=== PATIENT | female | born 1960 | race African-American/Black ===

== ENCOUNTER 2019-05-24 11:45 | Inpatient (IN) ==
[2019-05-24] MEDS ORDERED: ONDANSETRON 4 MG/2 ML VIAL IV STA (12:23)
[2019-05-24] MEDS ORDERED: SODIUM CHLORIDE 0.9% 2,000 ML IV STA (12:23)
[2019-05-24 13:00] LABS: Basophils % 0.4 % (0.0-0.8); Hematocrit 40.4 VOL% (35.7-47.0); Hemoglobin 12.6 GM/DL (12.0-16.0); Immature Granulocytes % 0.7 %; Immature Granulocytes Absolute 0.03 #; Lymphocytes # 1.2 10*3/uL (1.4-4.0); Lymphocytes % 26.5 % (21.3-54.2); Mean Corpuscular HGB Conc 31.2 GM/DL (32-36); Mean Platelet Volume 9.5 FL (9.6-12.0); Monocytes % 7.8 % (1.7-12.7); Neutrophils % 64.6 % (38.7-73.9); Platelet Count 289 T/CUMM (130-400); Red Blood Count 4.39 MC/CUMM (3.8-5.5); Red Cell Distribution Width 14.6 % (9.3-17.3); White Blood Count 4.6 T/CUMM (4-12)
[2019-05-24 13:27] LABS: Albumin 3.2 G/DL (3.4-5.0); Bilirubin,Total 0.4 MG/DL (0.2-1.0); Calcium 8.6 MG/DL (8.5-10.1); Osmolality,Calculated 273.4 MOS/KG (273-304); Total Protein 8.1 G/DL (6.4-8.3)
[2019-05-24] MEDS ORDERED: guaiFENesin/DM ER 600-30 MG TABLET PO PRN (16:04)
[2019-05-24] MEDS ORDERED: ONDANSETRON 4 MG/2 ML VIAL IV PRN (16:04)
[2019-05-24] MEDS ORDERED: GLUCAGON 1 MG VIAL IM PRN (16:25)
[2019-05-24] MEDS ORDERED: DEXTROSE 10% 250 ML BAG IV PRN (16:25)
[2019-05-24 17:30] LABS: Risk Ratio 3.74; Thyroid Stimulating Hormone 1.97 uIU/ml (0.358-3.74); VLDL CHOLESTEROL 23.8 MG/DL
[2019-05-24] MEDS: metroNIDAZOLE INJ 500 MG in PREMIX 1 EACH IV SCH (17:58)
[2019-05-24] MEDS: INSULIN REGULAR 100 UNIT/ML SUBCUT SCH (17:58)
[2019-05-24] MEDS: SODIUM CHLORIDE 0.9% 1,000 ML IV SCH (17:58)
[2019-05-24] MEDS: ENOXAPARIN 40 MG/0.4 ML SYRINGE SUBCUT SCH (17:59)
[2019-05-24] MEDS ORDERED: LEVOFLOXACIN INJ 500 MG in PREMIX 1 EACH IV ONE (20:00)
[2019-05-24] MEDS: ALBUTEROL 2.5 MG/3 ML NEB RESP TX SCH (20:36)
[2019-05-24] MEDS: GABAPENTIN 100 MG CAPSULE PO SCH (21:21)
[2019-05-24] MEDS: LORazepam 0.5 MG TABLET PO SCH (21:21)
[2019-05-24] MEDS: ZALEPLON 5 MG CAPSULE PO SCH (21:21)
[2019-05-25] MEDS: ALBUTEROL 2.5 MG/3 ML NEB RESP TX SCH ×4 (01:34→19:49)
[2019-05-25] MEDS: SODIUM CHLORIDE 0.9% 1,000 ML IV SCH ×3 (04:47→18:20)
[2019-05-25] MEDS: metroNIDAZOLE INJ 500 MG in PREMIX 1 EACH IV SCH ×2 (04:47→18:16)
[2019-05-25 04:50] LABS: Basophils % 0.2 % (0.0-0.8); Hemoglobin 10.3 GM/DL (12.0-16.0); Immature Granulocytes % 0.2 %; Immature Granulocytes Absolute 0.02 #; Lymphocytes # 1.7 10*3/uL (1.4-4.0); Lymphocytes % 19.7 % (21.3-54.2); Mean Corpuscular HGB Conc 31.2 GM/DL (32-36); Mean Corpuscular Volume 91.7 FL (87-102); Mean Platelet Volume 9.4 FL (9.6-12.0); Monocytes % 7.2 % (1.7-12.7); Neutrophils % 72.7 % (38.7-73.9); Platelet Count 248 T/CUMM (130-400); Red Cell Distribution Width 14.6 % (9.3-17.3); White Blood Count 8.4 T/CUMM (4-12)
[2019-05-25 05:27] LABS: Calcium 8.2 MG/DL (8.5-10.1); Osmolality,Calculated 273.1 MOS/KG (273-304)
[2019-05-25 07:57] LABS: Apearance,Urine CLEAR (Clear); Bilirubin,Urine Negative (Negative); Blood, Urine Negative (Negative); Glucose,Urine (UA) Negative (Negative); Ketones,Urine Negative (Negative); Nitrite,Urine Negative (Negative); Protein,Urine Negative; RBC,Urine 2 /HPF (0-4); Squamous Epithelial Cell,Urine Occasional /HPF (0-10); Urine Color Yellow (Yellow); Urine Urobilinogen < 2.0 EU/DL (0.2-1.0); WBC,Urine <1 /HPF (0-6)
[2019-05-25] MEDS: PANTOPRAZOLE 40 MG TABLET PO SCH (09:00)
[2019-05-25] MEDS: SERTRALINE 100 MG TABLET PO SCH (09:00)
[2019-05-25] MEDS: CALCIUM (CARBONATE)/VITAMIN D 600 MG-400 UNIT TABLET PO SCH (09:01)
[2019-05-25] MEDS: INSULIN REGULAR 100 UNIT/ML SUBCUT SCH ×3 (09:02→18:18)
[2019-05-25] MEDS: ENOXAPARIN 40 MG/0.4 ML SYRINGE SUBCUT SCH (18:15)
[2019-05-25] MEDS: ZALEPLON 5 MG CAPSULE PO SCH (21:19)
[2019-05-25] MEDS: LEVOFLOXACIN INJ 250 MG in PREMIX 1 EACH IV SCH (21:19)
[2019-05-25] MEDS: LORazepam 0.5 MG TABLET PO SCH (21:19)
[2019-05-25] MEDS: GABAPENTIN 100 MG CAPSULE PO SCH (21:19)
[2019-05-26] MEDS: ALBUTEROL 2.5 MG/3 ML NEB RESP TX SCH ×4 (00:53→19:42)
[2019-05-26] MEDS: SODIUM CHLORIDE 0.9% 1,000 ML IV SCH ×3 (02:44→17:34)
[2019-05-26] MEDS: metroNIDAZOLE INJ 500 MG in PREMIX 1 EACH IV SCH ×2 (05:04→17:46)
[2019-05-26 06:06] LABS: Calcium 7.9 MG/DL (8.5-10.1); Osmolality,Calculated 274.7 MOS/KG (273-304)
[2019-05-26 06:15] LABS: Basophils % 0.3 % (0.0-0.8); Eosinophils % 0.3 % (0.00-10.9); Hematocrit 31.9 VOL% (35.7-47.0); Hemoglobin 9.9 GM/DL (12.0-16.0); Immature Granulocytes % 0.3 %; Immature Granulocytes Absolute 0.02 #; Lymphocytes # 3.1 10*3/uL (1.4-4.0); Lymphocytes % 50.4 % (21.3-54.2); Mean Corpuscular Volume 92.2 FL (87-102); Mean Platelet Volume 9.9 FL (9.6-12.0); Neutrophils % 39.7 % (38.7-73.9); Platelet Count 245 T/CUMM (130-400); Red Blood Count 3.46 MC/CUMM (3.8-5.5); Red Cell Distribution Width 14.6 % (9.3-17.3); White Blood Count 6.2 T/CUMM (4-12)
[2019-05-26 06:54] LABS: Band Neutrophils 1 % (0-10); Eosinophils 1 % (0-10); Lymphocytes 47 % (20-55); Myelocytes 1 %; Segmented Neutrophils 39 % (50-85); Total Cells Counted 100
[2019-05-26 06:55] LABS: Anisocytosis 1+; Platelet Estimate Normal
[2019-05-26] MEDS: INSULIN REGULAR 100 UNIT/ML SUBCUT SCH ×3 (09:48→17:33)
[2019-05-26] MEDS: PANTOPRAZOLE 40 MG TABLET PO SCH (09:57)
[2019-05-26] MEDS: CALCIUM (CARBONATE)/VITAMIN D 600 MG-400 UNIT TABLET PO SCH (09:58)
[2019-05-26] MEDS: SERTRALINE 100 MG TABLET PO SCH (09:58)
[2019-05-26] MEDS: ENOXAPARIN 40 MG/0.4 ML SYRINGE SUBCUT SCH (17:46)
[2019-05-26] MEDS: LORazepam 0.5 MG TABLET PO SCH (21:15)
[2019-05-26] MEDS: GABAPENTIN 100 MG CAPSULE PO SCH (21:15)
[2019-05-26] MEDS: ZALEPLON 5 MG CAPSULE PO SCH (21:15)
[2019-05-26] MEDS: LEVOFLOXACIN INJ 250 MG in PREMIX 1 EACH IV SCH (21:16)
[2019-05-27] MEDS: ALBUTEROL 2.5 MG/3 ML NEB RESP TX SCH ×4 (00:04→19:27)
[2019-05-27] MEDS: SODIUM CHLORIDE 0.9% 1,000 ML IV SCH (02:26)
[2019-05-27] MEDS: metroNIDAZOLE INJ 500 MG in PREMIX 1 EACH IV SCH ×2 (05:13→16:17)
[2019-05-27 07:11] LABS: Basophils % 0.4 % (0.0-0.8); Eosinophils # 0.1 10*3/uL (0.0-0.87); Eosinophils % 1.3 % (0.00-10.9); Hematocrit 30.9 VOL% (35.7-47.0); Hemoglobin 9.4 GM/DL (12.0-16.0); Immature Granulocytes % 0.9 %; Immature Granulocytes Absolute 0.07 #; Lymphocytes # 3.6 10*3/uL (1.4-4.0); Lymphocytes % 47.5 % (21.3-54.2); Mean Corpuscular HGB Conc 30.4 GM/DL (32-36); Mean Platelet Volume 9.8 FL (9.6-12.0); Monocytes % 6.5 % (1.7-12.7); Neutrophils % 43.4 % (38.7-73.9); Platelet Count 236 T/CUMM (130-400); Red Blood Count 3.36 MC/CUMM (3.8-5.5); Red Cell Distribution Width 14.5 % (9.3-17.3); White Blood Count 7.6 T/CUMM (4-12)
[2019-05-27 07:33] LABS: Calcium 8.1 MG/DL (8.5-10.1); Osmolality,Calculated 277.5 MOS/KG (273-304)
[2019-05-27] MEDS: INSULIN REGULAR 100 UNIT/ML SUBCUT SCH ×3 (08:09→16:00)
[2019-05-27 08:50] LABS: Lymphocytes 49 % (20-55); Segmented Neutrophils 46 % (50-85); Total Cells Counted 100
[2019-05-27 08:51] LABS: Hypochromasia 1+; Ovalocytes Slight; Platelet Estimate Adequate
[2019-05-27] MEDS: CALCIUM (CARBONATE)/VITAMIN D 600 MG-400 UNIT TABLET PO SCH (09:57)
[2019-05-27] MEDS: SERTRALINE 100 MG TABLET PO SCH (09:58)
[2019-05-27] MEDS: PANTOPRAZOLE 40 MG TABLET PO SCH (09:58)
[2019-05-27] MEDS ORDERED: BISACODYL 10 MG SUPP RECTAL ONE (10:14)
[2019-05-27] MEDS: POLYETHYLENE GLYCOL POWDER 17 GM PACK PO SCH (10:32)
[2019-05-27] MEDS: ENOXAPARIN 40 MG/0.4 ML SYRINGE SUBCUT SCH (16:21)
[2019-05-27] MEDS: ZALEPLON 5 MG CAPSULE PO SCH (21:22)
[2019-05-27] MEDS: LORazepam 0.5 MG TABLET PO SCH (21:22)
[2019-05-27] MEDS: GABAPENTIN 100 MG CAPSULE PO SCH (21:22)
[2019-05-27] MEDS: LEVOFLOXACIN INJ 250 MG in PREMIX 1 EACH IV SCH (21:23)
[2019-05-28] MEDS: ALBUTEROL 2.5 MG/3 ML NEB RESP TX SCH ×4 (01:38→19:45)
[2019-05-28] MEDS: metroNIDAZOLE INJ 500 MG in PREMIX 1 EACH IV SCH ×2 (03:32→16:40)
[2019-05-28 05:10] LABS: Basophils % 0.3 % (0.0-0.8); Eosinophils # 0.2 10*3/uL (0.0-0.87); Eosinophils % 2.8 % (0.00-10.9); Hematocrit 31.6 VOL% (35.7-47.0); Hemoglobin 9.9 GM/DL (12.0-16.0); Immature Granulocytes % 0.5 %; Immature Granulocytes Absolute 0.04 #; Lymphocytes # 3.2 10*3/uL (1.4-4.0); Lymphocytes % 40.2 % (21.3-54.2); Mean Corpuscular HGB Conc 31.3 GM/DL (32-36); Mean Corpuscular Volume 91.1 FL (87-102); Mean Platelet Volume 9.6 FL (9.6-12.0); Monocytes % 5.1 % (1.7-12.7); Neutrophils % 51.1 % (38.7-73.9); Platelet Count 261 T/CUMM (130-400); Red Blood Count 3.47 MC/CUMM (3.8-5.5); Red Cell Distribution Width 14.4 % (9.3-17.3); White Blood Count 7.9 T/CUMM (4-12)
[2019-05-28 05:35] LABS: Atypical Lymphocytes Few; Hypochromasia 1+; Lymphocytes 33 % (20-55); Microcytosis Slight; Platelet Estimate Normal; Segmented Neutrophils 65 % (50-85); Total Cells Counted 100
[2019-05-28 05:44] LABS: Calcium 8.3 MG/DL (8.5-10.1); Osmolality,Calculated 280.4 MOS/KG (273-304)
[2019-05-28] MEDS: POTASSIUM CHLORIDE RIDER 10 MEQ in PREMIX 1 EACH IV PRN ×4 (06:51→14:30)
[2019-05-28] MEDS: POLYETHYLENE GLYCOL POWDER 17 GM PACK PO SCH (10:14)
[2019-05-28] MEDS: CALCIUM (CARBONATE)/VITAMIN D 600 MG-400 UNIT TABLET PO SCH (10:14)
[2019-05-28] MEDS: PANTOPRAZOLE 40 MG TABLET PO SCH (10:15)
[2019-05-28] MEDS: INSULIN REGULAR 100 UNIT/ML SUBCUT SCH ×3 (10:15→16:35)
[2019-05-28] MEDS: SERTRALINE 100 MG TABLET PO SCH (10:15)
[2019-05-28] MEDS: ENOXAPARIN 40 MG/0.4 ML SYRINGE SUBCUT SCH (16:40)
[2019-05-28] MEDS: ZALEPLON 5 MG CAPSULE PO SCH (20:16)
[2019-05-28] MEDS: GABAPENTIN 100 MG CAPSULE PO SCH (20:16)
[2019-05-28] MEDS: LORazepam 0.5 MG TABLET PO SCH (20:16)
[2019-05-28] MEDS: SODIUM CHLORIDE 0.9% 1,000 ML IV SCH ×2 (20:18→20:19)
[2019-05-28] MEDS: LEVOFLOXACIN INJ 250 MG in PREMIX 1 EACH IV SCH (20:19)
[2019-05-29] MEDS: SODIUM CHLORIDE 0.9% 1,000 ML IV SCH ×2 (01:40→09:13)
[2019-05-29] MEDS: ALBUTEROL 2.5 MG/3 ML NEB RESP TX SCH ×2 (01:46→06:45)
[2019-05-29] MEDS: metroNIDAZOLE INJ 500 MG in PREMIX 1 EACH IV SCH (03:39)
[2019-05-29 07:43] VITALS: BP 116/64
[2019-05-29] MEDS: INSULIN REGULAR 100 UNIT/ML SUBCUT SCH (07:50)
[2019-05-29] MEDS: SERTRALINE 100 MG TABLET PO SCH (09:12)
[2019-05-29] MEDS: POLYETHYLENE GLYCOL POWDER 17 GM PACK PO SCH (09:13)
[2019-05-29] MEDS: PANTOPRAZOLE 40 MG TABLET PO SCH (09:13)
[2019-05-29] MEDS: CALCIUM (CARBONATE)/VITAMIN D 600 MG-400 UNIT TABLET PO SCH (09:13)
== END 2019-05-29 11:01 | disposition swing bed (61) | DRG 871 ==
LOC: N.ED 11:45 → N.EDINP 15:59 → SUATTDRO 15:59 → N.EDINP 17:39 → N.5E 18:01
PROVIDERS: ADMIT Family Medicine; ATTEND Internal Medicine